=== PATIENT | male | born 2000 | race Caucasian/White ===

== ENCOUNTER 2021-08-07 09:10 | Day surgery (SDC) | payer BC ==
[~2021-08-07 09:10] MED LIST: Acetaminophen 1,000 MG in Premix Bag 1 BAG IV ONE; Albuterol 0.083% 2.5 MG/3 ML Neb Soln NEB PRN; Bupivacaine 25%/EPINEPHrine/PF 0 ML ONE; HYDROmorphone 1 MG/ML Syringe IVPUSH PRN; Lactated Ringers 1,000 ML IV SCH; Metoclopramide 10 MG/2 ML SDV IVPUSH PRN; Morphine 2 MG/ML SYRINGE IVPUSH PRN; Naloxone 0.4 MG/ML SDV IVPUSH PRN; Octyl 2-Cyanoacrylate 1 Tube ONE; Ondansetron 4 MG/2 ML SDV IVPUSH PRN; Pregabalin 75 MG Cap PO ONE; Scopolamine 1.5 MG Transdermal Patch ONE; cefOXitin 2 GM in Premix Bag 1 BAG IV ONE; fentaNYL 100 MCG/2 ML SDV IVPUSH PRN
[2021-08-07] MEDS ORDERED: Bupivacaine 0.5% 30 ML SDV ONE (09:29)
[2021-08-07] MEDS ORDERED: Propofol 200 MG/20 ML SDV ONE (10:45)
[2021-08-07] MEDS ORDERED: fentaNYL 250 MCG/5 ML SDV ONE (10:45)
[2021-08-07] MEDS ORDERED: Midazolam 1 MG/ML 2 ML SDV ONE (10:45)
[2021-08-07] MEDS ORDERED: Pregabalin 75 MG Cap ONE (10:52)
[2021-08-07] MEDS ORDERED: Dexamethasone 4 MG/ML 5 ML MDV ONE (11:57)
[2021-08-07] MEDS ORDERED: Glycopyrrolate 0.2 MG/ML SDV ONE (11:57)
[2021-08-07] MEDS ORDERED: Sugammadex Sodium 200 MG/2 ML VIAL ONE (11:57)
[2021-08-07] MEDS ORDERED: ePHEDrine 50 MG/ML SDV ONE (11:57)
[2021-08-07] MEDS ORDERED: Ondansetron 4 MG/2 ML SDV ONE (11:57)
[2021-08-07] MEDS ORDERED: Rocuronium Bromide 50 MG/5 ML Syringe ONE ×2 (11:57→12:05)
[2021-08-07] MEDS ORDERED: Ketorolac 30 MG/ML SDV ONE (11:57)
[2021-08-07] MEDS ORDERED: cefOXitin 100 ML ONE (11:58)
[2021-08-07] MEDS ORDERED: Dexmedetomidine 200 MCG/2 ML SDV ONE (12:03)
[2021-08-07] MEDS ORDERED: Acetaminophen/oxyCODONE 325-5 MG Tab PO PRN (14:31)
== END 2021-08-07 16:30 | disposition home or self-care (01) ==
LOC: MW.SDS 09:10
PROVIDERS: ATTEND Surgery
DX: K80.10 Calculus of gallbladder with chronic cholecystitis without obstruction (principal); E66.9 Obesity, unspecified; Z79.899 Other long term (current) drug therapy; Z98.890 Other specified postprocedural states; Z68.34 Body mass index [BMI] 34.0-34.9, adult
CPT/HCPCS: 00790; A9270-GY; J0131; J0694; J1100; J1885; J2250; J2405; J2704; J3010; J3490; J7120

== ENCOUNTER 2022-09-21 15:50 | Emergency (ER) | payer BC ==
[2022-09-21] MEDS ORDERED: Sodium Chloride 0.9% 10 ML Syringe FLUSH PRN (16:40)
[2022-09-21] MEDS ORDERED: Sodium Chloride 0.9% 1,000 ML IV STA (16:40)
[2022-09-21] MEDS ORDERED: Sodium Chloride 0.9% 2.5 ML Syringe FLUSH PRN (16:40)
[2022-09-21] MEDS ORDERED: Ondansetron 4 MG/2 ML SDV IVPUSH STA (16:40)
[2022-09-21 16:52] LABS: CORONAVIRUS COVID-19 NAA POSITIVE (NEGATIVE); INFLUENZA A NAA NEGATIVE (NEGATIVE); INFLUENZA B NAA NEGATIVE (NEGATIVE)
[2022-09-21 17:51] LABS: CARBON DIOXIDE,CO2 25.7 mmol/L (21.0-32.0); POTASSIUM,K 3.8 mmol/L (3.5-5.1)
== END 2022-09-21 18:46 | disposition home or self-care (01) ==
LOC: MW.ED 15:50
DX: U07.1 COVID-19 (principal); R11.14 Bilious vomiting
CPT/HCPCS: 0240U; 36415; 71046; 80053; 85025; 96361; 96374; 99284; J2405; J3490; J7030

== ENCOUNTER 2023-01-26 06:39 | Emergency (ER) | payer BC ==
[2023-01-26] MEDS ORDERED: Ketorolac 30 MG/ML SDV IVPUSH ONE (07:11)
[2023-01-26] MEDS ORDERED: Ondansetron 4 MG/2 ML SDV IVPUSH ONE (07:11)
[2023-01-26] MEDS ORDERED: Sodium Chloride 0.9% 1,000 ML IV ONE (07:11)
[2023-01-26 07:32] LABS: BASOPHILS PERCENT AUTO 0.5 % (0.0-1.5); EOSINOPHILS ABSOLUTE AUTO 0.6 K/uL (0.0-0.7); EOSINOPHILS PERCENT AUTO 6.6 % (0.0-7.0); HEMOGLOBIN 16.3 g/dL (13.0-17.0); LYMPHOCYTES ABSOLUTE AUTO 3.1 K/uL (0.6-2.4); LYMPHOCYTES PERCENT AUTO 35.9 % (16.0-40.0); MEAN CORPUSCULAR HEMOGLOBIN 30.6 pg (27.0-32.0); MEAN CORPUSCULAR HGB CONC 34.7 g/dL (31.0-37.0); MEAN CORPUSCULAR VOLUME 88.2 fL (80.0-98.0); MONOCYTES ABSOLUTE AUTO 0.9 K/uL (0.0-0.8); MONOCYTES PERCENT AUTO 10.4 % (0.0-15.0); NEUTROPHILS PERCENT AUTO 46.6 % (48.0-80.0); NRBC ABSOLUTE 0 K/uL; PLATELET COUNT,PLT 289 K/uL (150-400); RED BLOOD CELL COUNT 5.33 M/uL (4.50-5.90); WHITE BLOOD CELL COUNT,WBC 8.52 K/uL (4.0-11.0)
[2023-01-26 07:58] LABS: A/G RATIO 1.3 (0.9-1.6); BILIRUBIN TOTAL 0.8 mg/dL (0.2-1.0); CALCIUM 9.3 mg/dL (8.5-10.1); CREATININE 0.9 mg/dL (0.8-1.3); EST CRCL DRUG DOSING (CG) 100.27 mL/min; MAGNESIUM 2.2 mg/dL (1.8-2.4); POTASSIUM,K 3.8 mmol/L (3.5-5.1); PROTEIN TOTAL,TP 7.2 g/dL (6.4-8.2)
[2023-01-26 08:05] LABS: APPEARANCE,URINE CLEAR; BILIRUBIN,URINE NEGATIVE (NEGATIVE); COLOR,URINE YELLOW; GLUCOSE,URINE NEGATIVE (NEGATIVE); KETONES,URINE NEGATIVE (NEGATIVE); LEUKOCYTE ESTERASE,URINE NEGATIVE (NEGATIVE); NITRITE,URINE NEGATIVE (NEGATIVE); OCCULT BLOOD,URINE NEGATIVE (NEGATIVE); PROTEIN,URINE NEGATIVE (NEGATIVE); UROBILINOGEN,URINE 0.2 EU/dL (<2.0)
[2023-01-26] MEDS ORDERED: Iopamidol 755 MG/ML 500 ML Multipack Bottle IVPUSH ONE (09:37)
== END 2023-01-26 10:11 | disposition home or self-care (01) ==
LOC: MW.ED 06:39
DX: R10.11 Right upper quadrant pain (principal); E66.9 Obesity, unspecified; Z68.32 Body mass index [BMI] 32.0-32.9, adult; Z79.899 Other long term (current) drug therapy
CPT/HCPCS: 36415; 74177; 80053; 81003; 83690; 83735; 85025; 96361; 96374; 99284; J1885; J7030; Q9967

== ENCOUNTER 2023-03-08 11:16 | Emergency (ER) | payer BC ==
[2023-03-08] MEDS ORDERED: Acetaminophen 325 MG Tab PO ONE (12:55)
[2023-03-08] MEDS ORDERED: Ibuprofen 400 MG Tab PO ONE (12:55)
[2023-03-08 13:02] LABS: APPEARANCE,URINE CLEAR; BILIRUBIN,URINE NEGATIVE (NEGATIVE); COLOR,URINE YELLOW; GLUCOSE,URINE NEGATIVE (NEGATIVE); KETONES,URINE NEGATIVE (NEGATIVE); LEUKOCYTE ESTERASE,URINE NEGATIVE (NEGATIVE); NITRITE,URINE NEGATIVE (NEGATIVE); OCCULT BLOOD,URINE NEGATIVE (NEGATIVE); PROTEIN,URINE NEGATIVE (NEGATIVE); UROBILINOGEN,URINE 0.2 EU/dL (<2.0)
== END 2023-03-08 15:50 | disposition home or self-care (01) ==
LOC: MW.ED 11:16
DX: R10.31 Right lower quadrant pain (principal); E66.9 Obesity, unspecified; Z68.34 Body mass index [BMI] 34.0-34.9, adult
CPT/HCPCS: 76870; 81003; 93976; 99284; A9270; 99283